=== PATIENT | female | born 1965 | race Caucasian/White ===

== ENCOUNTER 2018-01-31 09:09 | Emergency (ER) | payer OTHER ==
--- NOTE | 2018-01-31 10:31 | ED Physician Documentation ---
History of Present Illness - Stated complaint Stated Complaint: LIGHTHEAD/SYNCOPE - Chief complaint Chief Complaint: General - Additonal information Additional information: 52 f to ED with three days of profound fatigue weakness overall heaviness, int cp lasting few sec at a time soa and diarrhea no NV or abd pain no recent travel did have flu and took tamiflu approx 1 wk ago perimenopausal heavy bleeding (approx 1 wee change pad tampon q few hr) no bloody black BM has had severe anemia before Review of Systems Constitutional: reports: Fatigue. denies: Fever, Chills Ears: denies: Ear pain Throat: denies: Sore throat Cardiac: reports: Chest pain / pressure Respiratory: reports: Dyspnea. denies: Cough GI: reports: Diarrhea. denies: Abdominal Pain, Nausea, Vomiting, Bloody / black stool (only 2/2 iron) : reports: LMP (now). denies: Now EGA (permenopausal) Skin: denies: Rash Neurologic: reports: Generalized weakness Endocrine: denies: Easy bruising / bleeding Immunocompromised: denies: Immunocompromised PD PAST MEDICAL HISTORY - Past Medical History Past Medical History: Yes - Present Medications Home Medications: Ambulatory Orders Medication Instructions Recorded Confirmed No Known Home Medications [No 01/31/18 01/31/18 Known Home Medications] - Allergies Allergies/Adverse Reactions: Allergies Allergy/AdvReac Type Severity Reaction Status Date / Time prochlorperazine Allergy Unknown Verified 01/31/18 09:18 [From Compazine] - Social History Does the pt smoke?: No Smoking Status: Never smoker PD ED PE NORMAL - Vitals Vital signs reviewed: Yes - HEENT HEENT: Atraumatic - Neck Neck: Supple, no meningeal sign - Cardiac Cardiac: RRR - Respiratory Respiratory: No respiratory distress, Clear bilaterally - Abdomen Abdomen: Soft, Non tender - Derm Derm: Normal color - Extremities Extremities: No deformity, No edema, No calf tenderness / cord - Neuro Neuro: Alert and oriented X 3 Results - Vitals Vitals: Vital Signs - 24 hr 01/31/18 01/31/18 01/31/18 09:18 10:22 13:18 Temperature 36.6 C 36.5 C Heart Rate 111 H 97 79 Respiratory 18 12 16 Rate Blood Pressure 175/75 H 139/86 H 138/80 H O2 Saturation 100 97 100 Oxygen O2 Source Room air - EKG (time done) 5923 Rate: Rate (enter#) (104) Rhythm: Sinus tachycardia [place]: Normal Intervals: Normal [place] Ischemia: Normal ST segments - Labs Labs: Laboratory Tests 01/31/18 01/31/18 01/31/18 10:55 10:55 10:55 WBC 6.2 RBC 4.27 Hgb 13.7 Hct 40.2 MCV 94.2 MCH 32.2 H MCHC 34.2 RDW 12.7 Plt Count 265 MPV 6.4 L Neut # 4.7 Lymph # 1.1 L [place] # 0.3 Eos # 0.0 Baso # 0.1 Absolute Nucleated RBC 0.00 Nucleated RBC % 0.0 Sodium 139 Potassium 3.8 Chloride 99 L Carbon Dioxide 23 Anion Gap 17.0 H BUN 9 Creatinine 0.7 Estimated GFR (MDRD) 89 Glucose 102 H Calcium 9.4 Total Bilirubin 0.9 AST 326 H ALT 190 H Alkaline Phosphatase 90 Troponin I Total Protein 8.7 H Albumin 4.9 Globulin 3.8 Albumin/Globulin Ratio 1.3 Lipase 31 TSH Serum HCG, Qual NEGATIVE 01/31/18 01/31/18 10:55 10:55 WBC RBC Hgb Hct MCV MCH MCHC RDW Plt Count MPV Neut # Lymph # [place] # Eos # Baso # Absolute Nucleated RBC Nucleated RBC % Sodium Potassium Chloride Carbon Dioxide Anion Gap BUN Creatinine Estimated GFR (MDRD) Glucose Calcium Total Bilirubin AST ALT Alkaline Phosphatase Troponin I < 0.04 Total Protein Albumin Globulin Albumin/Globulin Ratio Lipase TSH 1.17 Serum HCG, Qual - Rads (name of study) CXR Radiology: See rad report (no acute process) PD MEDICAL DECISION MAKING - ED course ED course: labs fine except AST > ALT and pt advised to dec EtOH CXR neg not preg nl TSH considered PE but pt has just fleeting CP, her flu like sx are better now, she is has no risk factors (no personal hx, no fhx, non smoker, no surgery, no inpt stay, no long trips, no hormone tx etc) and no leg swelling tachypnea or hypoxia pt thinks her sx may be anxiety do not feel she needs a CTPA her HR is down she is reassured by her work up will dc advised pt I am not saying nothing is wrong, that a dx may later become apparent, that close fup is important etc Departure - Departure Disposition: 01 Home, Self Care Clinical Impression: Weakness Condition: Good Instructions: ED Weakness [facility] Comments: All your tests today came back very reassuring - except for the slightly elevated liver tests we talked about Your are not anemic You are not You are not diabetic Your thyroid function is fine. Your kidney function is fine Your electrolytes are fine. Your EKG is fine The blood test for a heart attack was fine Your xray was fine - no lung disease and no enlarged heart Based on your exam i do not think you have a blood clot in your lungs Your heart rate is down now and all your other vital signs are fine. Given the reassuring work up in the ER I think it is safe for you to go home now. I am not saying nothing is wrong and I encourage you to follow up with your PMD for a recheck and further work up. Return to the ER if worse Please cut down on your alcohol use Discharge Date/Time: 01/31/18 13:52
[2018-01-31 11:02] LABS: BASOPHILS # (AUTO) 0.1 10^3/uL (0.0-0.1); EOSINOPHILS % (AUTO) 0.1 %; HGB - HEMOGLOBIN 13.7 g/dL (12.0-16.0); LYMPHOCYTES # (AUTO) 1.1 10^3/uL (1.5-3.5); LYMPHOCYTES % (AUTO) 18.4 %; MEAN CORPUSCULAR HEMOGLOBIN 32.2 pg (27.0-31.0); MEAN CORPUSCULAR HGB CONC 34.2 g/dL (32.0-36.0); MEAN CORPUSCULAR VOLUME 94.2 fL (81.0-99.0); MEAN PLATELET VOLUME 6.4 fL (7.9-10.8); MONOCYTES # (AUTO) 0.3 10^3/uL (0.0-1.0); MONOCYTES % (AUTO) 4.3 %; NEUTROPHILS # (AUTO) 4.7 10^3/uL (1.5-6.6); NEUTROPHILS % (AUTO) 76.2 %; PLT - PLATELET COUNT 265 10^3/uL (130-450); RED BLOOD COUNT 4.27 10^6/uL (4.20-5.40); RED CELL DISTRIBUTION WIDTH 12.7 % (12.0-15.0); WHITE BLOOD COUNT 6.2 x10^3/uL (4.8-10.8)
[2018-01-31 11:15] LABS: ALBUMIN 4.9 g/dL (3.2-5.5); ALBUMIN/GLOBULIN RATIO 1.3 (1.0-2.2); BILIRUBIN,TOTAL 0.9 mg/dL (0.2-1.0); CALCIUM 9.4 mg/dL (8.5-10.3); CREATININE 0.7 mg/dL (0.4-1.0); TOTAL PROTEIN 8.7 g/dL (6.7-8.2)
[2018-01-31 11:36] LABS: HCG,QUALITATIVE BLOOD NEGATIVE
--- NOTE | 2018-01-31 12:32 | XRAY Report ---
EXAM: CHEST RADIOGRAPHY 2 VIEWS EXAM DATE: 01/31/2018. CLINICAL HISTORY: Dyspnea on exertion. Dizziness. Weakness. COMPARISON: 02/11/2014. TECHNIQUE: PA and lateral views. FINDINGS: Lungs/Pleura: Normal vasculature. The lungs are clear. No pleural fluid or pneumothorax. Mediastinum: Normal cardiac and mediastinal contours. Bones: Minimal degenerative changes of the spine. IMPRESSION: Normal examination. No change from 02/11/2014. [facility] Referring Provider Line: [phone] SITE ID: [id number]
[2018-01-31 13:19] VITALS: BP 138/80
== END 2018-01-31 13:52 | disposition home or self-care (01) ==
LOC: ED 09:09
DX: R53.1 Weakness (principal); R07.9 Chest pain, unspecified
CPT/HCPCS: 36415; 71046; 80053; 83690; 84443; 84484; 84703; 85025; 93005; 99283

== ENCOUNTER 2018-03-01 13:23 | Outpatient (CLI) | payer OTHER ==
[2018-03-01 19:09] LABS: FOLLICLE STIMULATING HORMONE 19.77 mIU/mL; LUTEINIZING HORMONE 7.97 mIU/mL
== END 2018-03-01 13:24 | disposition home or self-care (01) ==
LOC: LAB.F 13:23
PROVIDERS: ATTEND Obstetrics & Gynecology
DX: N95.1 Menopausal and female climacteric states (principal)
CPT/HCPCS: 36415; 82670; 83001; 83002

== ENCOUNTER 2018-04-22 13:31 | Emergency (ER) | payer OTHER ==
[2018-04-22 14:28] LABS: BASOPHILS % (AUTO) 0.8 %; HGB - HEMOGLOBIN 13.5 g/dL (12.0-16.0); LYMPHOCYTES # (AUTO) 0.9 10^3/uL (1.5-3.5); LYMPHOCYTES % (AUTO) 23.2 %; MEAN CORPUSCULAR HEMOGLOBIN 33.5 pg (27.0-31.0); MEAN CORPUSCULAR HGB CONC 34.2 g/dL (32.0-36.0); MEAN CORPUSCULAR VOLUME 97.8 fL (81.0-99.0); MEAN PLATELET VOLUME 6.9 fL (7.9-10.8); MONOCYTES # (AUTO) 0.3 10^3/uL (0.0-1.0); MONOCYTES % (AUTO) 6.9 %; NEUTROPHILS # (AUTO) 2.7 10^3/uL (1.5-6.6); NEUTROPHILS % (AUTO) 68.1 %; PLT - PLATELET COUNT 198 10^3/uL (130-450); RED BLOOD COUNT 4.04 10^6/uL (4.20-5.40); RED CELL DISTRIBUTION WIDTH 13.4 % (12.0-15.0); WHITE BLOOD COUNT 3.9 x10^3/uL (4.8-10.8)
[2018-04-22 14:39] LABS: ALBUMIN 4.6 g/dL (3.2-5.5); ALBUMIN/GLOBULIN RATIO 1.1 (1.0-2.2); BILIRUBIN,TOTAL 1.3 mg/dL (0.2-1.0); CALCIUM 10.3 mg/dL (8.5-10.3); CREATININE 0.6 mg/dL (0.4-1.0); TOTAL PROTEIN 8.6 g/dL (6.7-8.2)
[2018-04-22] MEDS ORDERED: SODIUM CHLORIDE 0.9% 1,000 ML IV ONE (14:51)
[2018-04-22] MEDS ORDERED: LORazepam 2 MG/ML VIAL IVP STA (14:51)
[2018-04-22] MEDS ORDERED: MORPHINE 2 MG/ML SYRINGE IVP STA (14:51)
--- NOTE | 2018-04-22 14:54 | ED Physician Documentation ---
PD HPI ABD PAIN - Stated complaint Stated Complaint: ABD/BACK PX - Chief complaint Chief Complaint: Cardiac - History obtained from History obtained from: Patient - History of Present Illness Timing - onset: Other (52-year-old woman who presents with her , she is a history of pretty heavy alcohol and use daily and drinks during the day. She has been having ongoing and increasing epigastric pain radiating to the back and right shoulder that has been severe especially over the last few days and especially today. It is not associated with eating. It is worse with lying flat. She has no appetite but has not been vomiting. She has had yellow E and soft sometimes dark but not black stools. She notices easy bruising as well.) Review of Systems Ten Systems: 10 systems reviewed and negative Constitutional: reports: Fatigue. 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: section - Present Medications Home Medications: Ambulatory Orders Medication Instructions Recorded Confirmed Lorazepam [Ativan] 1 mg PO TID PRN #20 tablet 04/22/18 Metoprolol Succinate [Toprol Xl] 04/22/18 Ondansetron HCl [Zofran] 4 mg PO Q6H PRN #10 tablet 04/22/18 busPIRone [Buspar] 04/22/18 oxyCODONE [Roxicodone] 5 mg PO Q4-6H PRN #20 tablet 04/22/18 - Allergies Allergies/Adverse Reactions: Allergies Allergy/AdvReac Type Severity Reaction Status Date / Time prochlorperazine Allergy Unknown Verified 04/22/18 13:59 [From Compazine] - Social History Does the pt smoke?: No Smoking Status: Never smoker Does the pt drink ETOH?: No Does the pt have substance abuse?: No - Family History Family history: reports: Non contributory PD ED PE NORMAL - Vitals Vital signs reviewed: Yes - General General: Alert and oriented X 3, No acute distress - HEENT HEENT: PERRL, EOMI - Neck Neck: Supple, no meningeal sign, No bony TTP - Cardiac Cardiac: RRR, No murmur - Respiratory Respiratory: No respiratory distress, Clear bilaterally - Abdomen Abdomen: Normal bowel sounds, Soft, Non tender - Back Back: No CVA TTP, No spinal TTP - Derm Derm: Normal color, Warm and dry - Extremities Extremities: No edema, No calf tenderness / cord - Neuro Neuro: Alert and oriented X 3, Normal speech - Psych Psych: Normal mood, Normal affect Results - Vitals Vitals: Vital Signs - 24 hr 04/22/18 04/22/18 13:57 15:45 Temperature 36.7 C Heart Rate 93 78 Respiratory 20 16 Rate Blood Pressure 170/110 H 144/91 H O2 Saturation 100 98 Oxygen O2 Source Room air - EKG (time done) 1427 Rate: Rate (enter#) (91) Rhythm: NSR [place]: Normal Intervals: Normal [place] QRS: Normal Ischemia: Normal ST segments Computer interpretation: Agree with computer - Labs Labs: Laboratory Tests 04/22/18 04/22/18 14:15 14:15 WBC 3.9 L RBC 4.04 L Hgb 13.5 Hct 39.5 MCV 97.8 MCH 33.5 H MCHC 34.2 RDW 13.4 Plt Count 198 MPV 6.9 L Neut # (Auto) 2.7 Lymph # (Auto) 0.9 L [place] # (Auto) 0.3 Eos # (Auto) 0.0 Baso # (Auto) 0.0 Absolute Nucleated RBC 0.00 Nucleated RBC % 0.0 Sodium 133 L Potassium 3.7 Chloride 96 L Carbon Dioxide 23 Anion Gap 14.0 H BUN 7 Creatinine 0.6 Estimated GFR (MDRD) 106 Glucose 124 H Calcium 10.3 Total Bilirubin 1.3 H AST 291 H ALT 192 H Alkaline Phosphatase 84 Total Protein 8.6 H Albumin 4.6 Globulin 4.0 Albumin/Globulin Ratio 1.1 Lipase 50 - Rads (name of study) RUQ sono Radiology: EMP read contemporaneously (No acute abnormalities, fatty liver and mild hepatomegaly.) PD MEDICAL DECISION MAKING - ED course ED course: 52-year-old woman presents with worsening right upper quadrant pain radiating to the shoulder and back which based on the history is likely biliary in origin , and more likely to be alcoholic hepatitis based on the origin. She does have modestly elevated liver enzymes although not too different from 2 months ago. She has no gallstones on ultrasound. Hepatitis panels are pending, but she has no risk factors for these. She has a MELD-Na score of 13 which is pretty low and does not need steroids. Both she and her plan to quit drinking completely she is given pain medication and benzodiazepines and nausea medicine and she will follow-up closely with her physician. - Sepsis Event Vital Signs: Vital Signs - 24 hr 04/22/18 04/22/18 13:57 15:45 Temperature 36.7 C Heart Rate 93 78 Respiratory 20 16 Rate Blood Pressure 170/110 H 144/91 H O2 Saturation 100 98 Oxygen O2 Source Room air Departure - Departure Disposition: 01 Home, Self Care Clinical Impression: Abdominal pain Qualifiers: Abdominal location: right upper quadrant Qualified Code(s): R10.11 - Right upper quadrant pain Alcoholic hepatitis Qualifiers: Ascites presence: without ascites Qualified Code(s): K70.10 - Alcoholic hepatitis without ascites Condition: Good Record reviewed to determine appropriate education?: Yes Instructions: ED Alcohol Abuse Follow-Up: Kelechi Carpenter MD [Primary Care Provider] - Within 3 Days Prescriptions: Lorazepam [Ativan] 1 mg PO TID PRN #20 tablet PRN Reason: Anxiety Ondansetron HCl [Zofran] 4 mg PO Q6H PRN #10 tablet PRN Reason: Nausea / Vomiting oxyCODONE [Roxicodone] 5 mg PO Q4-6H PRN #20 tablet PRN Reason: Pain Comments: Your blood pressure was elevated today on check into the emergency department. This does not mean that you have hypertension, it is a common phenomenon to come to the emergency department and have elevated blood pressure. I recommend that you see your primary care physician within the week to have it rechecked when you are feeling better.
[2018-04-22] MEDS ORDERED: HYDROmorphone 2 MG/ML VIAL IVP STA (15:45)
--- NOTE | 2018-04-22 15:59 | Ultrasound Report ---
Procedure Date: 04/22/2018 Accession Number: [id number] / [id number] Procedure: US - Abdomen Limited CPT Code: FULL RESULT: EXAM: ABDOMEN ULTRASOUND LIMITED, RUQ EXAM DATE: 04/22/2018 03:48 PM. CLINICAL HISTORY: Right upper quadrant pain. COMPARISON: None. TECHNIQUE: Real-time scanning was performed with static images obtained. FINDINGS: Liver: The liver is diffusely echogenic in appearance suggesting fibrofatty infiltration. No suspicious lesions or masses are identified. The liver is enlarged measuring 20.2 cm. Main portal vein flow: Hepatopetal. Gallbladder: Normal. No stones, wall thickening, or sonographic Lorenzo's sign. Biliary System: CBD measures 5 mm. No intrahepatic or extrahepatic ductal dilatation. Other: None. IMPRESSION: 1. No acute intra-abdominal abnormality demonstrated. 2. Fatty liver and mild hepatomegaly. [facility]
[2018-04-22 16:34] VITALS: BP 141/89
[2018-04-24 13:05] LABS: HEPATITIS A IGM NON-REACTIVE (NON-REACTIVE); HEPATITIS B CORE ANTIBODY IGM NON-REACTIVE (NON-REACTIVE); HEPATITIS B SURFACE ANTIGEN NON-REACTIVE (NON-REACTIVE); HEPATITIS C ANTIBODY NON-REACTIVE (NON-REACTIVE)
== END 2018-04-22 16:33 | disposition home or self-care (01) ==
LOC: ED 13:31
DX: K70.10 Alcoholic hepatitis without ascites (principal); R10.11 Right upper quadrant pain; M25.511 Pain in right shoulder; M54.9 Dorsalgia, unspecified; R03.0 Elevated blood-pressure reading, without diagnosis of hypertension
CPT/HCPCS: 36415; 76705; 80053; 80074; 83690; 85025; 93005; 96361; 96374; 96375; 99283; 99284; J1170; J2060; J2270; 81001; 81003; 81025; 87086

== ENCOUNTER 2018-11-20 03:26 | Emergency (ER) | payer OTHER ==
[2018-11-20] MEDS ORDERED: SODIUM CHLORIDE 0.9% 2,000 ML IV ONE (03:58)
[2018-11-20] MEDS ORDERED: diazePAM 5 MG TABLET PO STA ×3 (03:59→05:53)
[2018-11-20] MEDS ORDERED: GI COCKTAIL 120 ML BOTTLE PO SCH (04:00)
[2018-11-20] MEDS ORDERED: FAMOTIDINE 20 MG TABLET PO STA (04:09)
[2018-11-20] MEDS ORDERED: ONDANSETRON 4 MG/2 ML VIAL IVP STA (04:09)
[2018-11-20] MEDS ORDERED: IOVERSOL 320 100 ML VIAL IVP ONE ×2 (04:09→05:04)
[2018-11-20] MEDS ORDERED: MAG HYDROX/AL HYDROX/SIMETH 30 ML UDC PO STA (04:21)
[2018-11-20] MEDS ORDERED: LIDOCAINE VISCOUS 2% 15 ML UDC MM STA ×2 (04:21→05:54)
[2018-11-20 04:25] LABS: BASOPHILS % (AUTO) 0.5 %; EOSINOPHILS % (AUTO) 0.4 %; HGB - HEMOGLOBIN 13.3 g/dL (12.0-16.0); LYMPHOCYTES # (AUTO) 1.1 10^3/uL (1.5-3.5); LYMPHOCYTES % (AUTO) 21.7 %; MEAN CORPUSCULAR HEMOGLOBIN 31.9 pg (27.0-31.0); MEAN CORPUSCULAR HGB CONC 34.2 g/dL (32.0-36.0); MEAN CORPUSCULAR VOLUME 93.3 fL (81.0-99.0); MONOCYTES # (AUTO) 0.4 10^3/uL (0.0-1.0); MONOCYTES % (AUTO) 8.7 %; NEUTROPHILS # (AUTO) 3.4 10^3/uL (1.5-6.6); NEUTROPHILS % (AUTO) 68.7 %; PLT - PLATELET COUNT 218 10^3/uL (130-450); RED BLOOD COUNT 4.18 10^6/uL (4.20-5.40); RED CELL DISTRIBUTION WIDTH 14.2 % (12.0-15.0); WHITE BLOOD COUNT 4.9 x10^3/uL (4.8-10.8)
[2018-11-20 04:34] LABS: ALBUMIN/GLOBULIN RATIO 1.3 (1.0-2.2)
[2018-11-20 04:41] LABS: ALBUMIN 4.9 g/dL (3.2-5.5); BILIRUBIN,TOTAL 1.1 mg/dL (0.2-1.0); CALCIUM 10.1 mg/dL (8.5-10.3); CREATININE 0.6 mg/dL (0.4-1.0); TOTAL PROTEIN 8.6 g/dL (6.7-8.2)
--- NOTE | 2018-11-20 05:21 | XRAY Report ---
Reason: chest pain Procedure Date: 11/20/2018 Accession Number: [id number] / [id number] Procedure: XR - Chest 1 View X-Ray CPT Code: 65326 FULL RESULT: EXAM: CHEST RADIOGRAPHY EXAM DATE: 11/20/2018 05:12 AM. CLINICAL HISTORY: Chest pain. COMPARISON: 01/31/2018. TECHNIQUE: 1 view. FINDINGS: Lungs/Pleura: No alveolar consolidation or pleural effusion seen. No pneumothorax. Mediastinum: Within exam limitations, the cardiomediastinal contour is normal. Other: None. IMPRESSION: 1. No acute abnormality seen in the chest. [facility]
--- NOTE | 2018-11-20 05:52 | CT Report ---
Reason: Throat mass Procedure Date: 11/20/2018 Accession Number: [id number] / [id number] Procedure: CT - SOFT TISSUE NECK W CPT Code: FULL RESULT: EXAM: CT SOFT TISSUE NECK WITH CONTRAST. EXAM DATE: 11/20/2018 05:06 AM. HISTORY: Mass sensation in the throat. COMPARISONS: None. TECHNIQUE: Routine soft tissue neck CT protocol. Reconstructions: Coronal and sagittal. IV contrast: 80ML OPTIRAY 320. In accordance with CT protocol optimization, one or more of the following dose reduction techniques were utilized for this exam: automated exposure control, adjustment of mA and/or KV based on patient size, or use of iterative reconstructive technique. FINDINGS: Visualized Intracranial Contents: Unremarkable. Orbits: Symmetric and unremarkable. Sinuses: Visualized paranasal sinuses and mastoid air cells are clear. Oral cavity: The visualized oral cavity is unremarkable. The floor of the mouth is symmetric. Pharynx : Pharyngeal mucosa is unremarkable. The infratemporal fossa, parapharyngeal spaces, and retropharyngeal space are unremarkable. The base of the tongue is symmetric and unremarkable. The airway is patent. Larynx: Larynx and supraglottic airway are patent without mass lesion. Vocal cords are symmetric. The visualized trachea is unremarkable. Parotid and Submandibular Glands: Symmetric and unremarkable. Lymph Nodes: No enlarged lymph nodes are identified in the cervical, supraclavicular, and visualized superior mediastinal regions. Soft tissues: Soft tissues are unremarkable. No mass lesion or abnormal enhancement. Vascular Structures: Unremarkable. Thyroid Gland: Normal. Lung: The visualized lung apices are clear. Bones: No evidence of acute fracture or malalignment. There are mild degenerative changes in the cervical spine, most pronounced at C4-C5 and C5-C6. Other: None. IMPRESSION: No significant abnormality identified. No mass, significant lymphadenopathy, abscess or inflammatory appearing changes involving the neck soft tissues. [facility] The above call report findings were discussed with Umer Mcconnell by Dr. Jed Diaz at 05:49 AM on 11/20/2018.
[2018-11-20] MEDS ORDERED: SODIUM CHLORIDE 0.9% 1,000 ML IV ONE (05:53)
[2018-11-20] MEDS ORDERED: SUCRALFATE 1 GM/10 ML UDC PO STA (05:55)
--- NOTE | 2018-11-20 06:30 | ED Physician Documentation ---
History of Present Illness - Stated complaint Stated Complaint: THROAT SWELLING - Chief complaint Chief Complaint: General - History obtained from History obtained from: Patient - History of Present Illness Timing: Prior to arrival Pain level max: 3 Pain level now: 3 Severity Comments: moderate Quality: burning Radiates to: throat and epigastric Improved by: nothing Worsened by: ETOH - Additonal information Additional information: 52-year-old female who drinks 1 L of vodka daily presents with throat and epigastric discomfort.Patient's last drink was 8 hours ago. Review of Systems Constitutional: reports: Reviewed and negative Eyes: reports: Reviewed and negative Ears: reports: Reviewed and negative Nose: reports: Reviewed and negative Throat: reports: Reviewed and negative Cardiac: reports: Reviewed and negative Respiratory: reports: Reviewed and negative GI: reports: Abdominal Pain, Other (Sore throat) : reports: Reviewed and negative Skin: reports: Reviewed and negative Musculoskeletal: reports: Reviewed and negative Neurologic: reports: Reviewed and negative Psychiatric: reports: Reviewed and negative Endocrine: reports: Reviewed and negative Immunocompromised: reports: Reviewed and negative PD PAST MEDICAL HISTORY - Past Medical History Past Medical History: Yes Cardiovascular: Hypertension GI: GERD Psych: Depression, Anxiety, Other - Past Surgical History 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 - Present Medications Home Medications: Ambulatory Orders Medication Instructions Recorded Confirmed Metoprolol Succinate [Toprol Xl] 50 mg PO DAILY 04/22/18 11/20/18 Ondansetron HCl [Zofran] 4 mg PO Q6H PRN #10 tablet 04/22/18 11/20/18 oxyCODONE [Roxicodone] 5 mg PO Q4-6H PRN #20 tablet 04/22/18 11/20/18 Citalopram Hydrobromide 20 mg PO DAILY 11/20/18 11/20/18 [Citalopram HBr] Famotidine/Ca Carb/Mag Hydrox 1 each PO BID #60 tab.chew 11/20/18 [Pepcid Complete Tablet Chew] Gabapentin 300 mg PO TID #18 capsule 11/20/18 - Allergies Allergies/Adverse Reactions: Allergies Allergy/AdvReac Type Severity Reaction Status Date / Time prochlorperazine Allergy Unknown Verified 11/20/18 03:45 [From Compazine] - Social History Does the pt smoke?: No Smoking Status: Never smoker Does the pt drink ETOH?: Yes Does the pt have substance abuse?: Yes Substance Use and Type: Prescription Pills - Immunizations Immunizations are current?: Yes - POLST Patient has POLST: No PD ED PE NORMAL - Vitals Vital signs reviewed: Yes - General General: Alert and oriented X 3, No acute distress - HEENT HEENT: PERRL - Neck Neck: Supple, no meningeal sign - Cardiac Cardiac: RRR, No murmur - Respiratory Respiratory: Clear bilaterally - Abdomen Abdomen: Normal bowel sounds, Soft, Non tender, Non distended - Derm Derm: Warm and dry - Extremities Extremities: No deformity - Neuro Neuro: Alert and oriented X 3, Other (Patient tremulous with tongue fasciculations) - Psych Psych: Normal mood, Normal affect Results - Vitals Vitals: Vital Signs - 24 hr 11/20/18 11/20/18 11/20/18 03:30 03:45 05:13 Temperature 37.3 C Heart Rate 121 H 121 H 109 H Respiratory 22 19 15 Rate Blood Pressure 214/92 H 212/184 H 105/56 L O2 Saturation 100 100 96 11/20/18 05:51 Temperature Heart Rate 104 H Respiratory 14 Rate Blood Pressure 113/68 O2 Saturation 98 Oxygen O2 Source Room air - Labs Labs: Laboratory Tests 11/20/18 11/20/18 11/20/18 04:14 04:14 04:14 WBC 4.9 RBC 4.18 L Hgb 13.3 Hct 39.0 MCV 93.3 MCH 31.9 H MCHC 34.2 RDW 14.2 Plt Count 218 MPV 7.0 L Neut # (Auto) 3.4 Lymph # (Auto) 1.1 L [place] # (Auto) 0.4 Eos # (Auto) 0.0 Baso # (Auto) 0.0 Absolute Nucleated RBC 0.00 Nucleated RBC % 0.0 Sodium 134 L Potassium 3.7 Chloride 96 L Carbon Dioxide 22 Anion Gap 16.0 H BUN 6 Creatinine 0.6 Estimated GFR (MDRD) 106 Glucose 117 H Calcium 10.1 Total Bilirubin 1.1 H AST 120 H ALT 91 H Alkaline Phosphatase 77 Troponin I < 0.04 Total Protein 8.6 H Albumin 4.9 Globulin 3.7 Albumin/Globulin Ratio 1.3 Lipase 35 PD MEDICAL DECISION MAKING - ED course Complexity details: reviewed results, re-evaluated patient, considered differential, d/w patient, d/w family ED course: 52-year-old female alcoholic who drinks 1 L of vodka daily presents with throat and abdominal discomfort. Vitals notable for tachycardia and hypertension which improved with a total of 30 mg of Valium and 3 L IV fluids.Patient in early acute alcohol withdrawal. Throat and epigastric pain improved with symptomatic treatment. Patient was discharged on gabapentin taper and provided resources for addiction recovery. Brief intervention performed regarding alcohol cessation.Patient is in the contemplative stage. Departure - Departure Disposition: 01 Home, Self Care Clinical Impression: Epigastric pain Alcohol withdrawal Qualifiers: Complication of substance-induced condition: uncomplicated Qualified Code(s): F10.230 - Alcohol dependence with withdrawal, uncomplicated Condition: Stable Instructions: ED Withdrawal Alcohol, ED Epigastric Pain [facility] Follow-Up: Kelechi Carpenter MD [Primary Care Provider] - Prescriptions: Famotidine/Ca Carb/Mag Hydrox [Pepcid Complete Tablet Chew] 1 each PO BID #60 tab.chew Gabapentin 300 mg PO TID #18 capsule Comments: Follow-up on recovery resources. Follow-up with PCP within 24 hours. Return with worsening symptoms.
[2018-11-20 06:56] VITALS: BP 127/84
== END 2018-11-20 07:04 | disposition home or self-care (01) ==
LOC: ED 03:26
DX: F10.230 Alcohol dependence with withdrawal, uncomplicated (principal); R10.13 Epigastric pain; R07.0 Pain in throat; R00.0 Tachycardia, unspecified; I10 Essential (primary) hypertension
CPT/HCPCS: 36415; 70491; 71045; 80053; 83690; 84484; 85025; 93005; 96361; 96374; 99283; 99284; A9270; Q9967

== ENCOUNTER 2018-12-20 08:11 | Emergency (ER) | payer OTHER ==
[2018-12-20] MEDS ORDERED: PANTOPRAZOLE 40 MG VIAL IVP STA (08:59)
[2018-12-20] MEDS ORDERED: LORazepam 2 MG/ML VIAL IVP STA ×2 (08:59→11:58)
[2018-12-20] MEDS ORDERED: ONDANSETRON 4 MG/2 ML VIAL IVP STA (09:01)
--- NOTE | 2018-12-20 09:03 | ED Physician Documentation ---
History of Present Illness - Stated complaint Stated Complaint: ETOH WITHDRAWL - Chief complaint Chief Complaint: General - History obtained from History obtained from: Patient - History of Present Illness Timing: Enter time (129), Today - Additonal information Additional information: 53-year-old female alcoholic who has had a recent 3-week sobriety started drinking again 5 days ago and she stopped immediately and again experienced withdrawal symptoms. Last night she was having such a hard time sleeping that she drank 375 mL's of vodka and subsequently began to develop nausea vomiting abdominal pain. She states the pain is horrible her shakes are horrible and she is feeling quite ill. She was seen in the emergency department and treated for alcohol withdrawal with a gabapentin taper last month and she felt that that was helpful. Review of Systems Constitutional: denies: Fever Eyes: denies: Decreased vision Ears: denies: Ear pain Nose: denies: Rhinorrhea / runny nose, Congestion Throat: denies: Sore throat Cardiac: reports: Chest pain / pressure. 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 - Present Medications Home Medications: Ambulatory Orders Medication Instructions Recorded Confirmed Metoprolol Succinate [Toprol Xl] 50 mg PO DAILY 04/22/18 12/20/18 Famotidine/Ca Carb/Mag Hydrox 1 each PO BID #60 tab.chew 11/20/18 12/20/18 [Pepcid Complete Tablet Chew] Buspirone HCl 10 mg PO DAILY 12/20/18 12/20/18 Lorazepam [Ativan] 1 - 2 mg PO Q6HR PRN #30 tablet 12/20/18 Ondansetron Odt [Zofran] 4 mg TL Q6H PRN #10 tablet 12/20/18 Sucralfate [Carafate] 1 gm PO ACHS #60 tablet 12/20/18 - Allergies Allergies/Adverse Reactions: Allergies Allergy/AdvReac Type Severity Reaction Status Date / Time prochlorperazine Allergy Unknown Verified 12/20/18 08:22 [From Compazine] - Social History Does the pt smoke?: No Smoking Status: Never smoker Does the pt drink ETOH?: Yes Does the pt have substance abuse?: Yes Substance Use and Type: Marijuana - Immunizations Immunizations are current?: Yes - POLST Patient has POLST: No PD ED PE NORMAL - Vitals Vital signs reviewed: Yes (tachy and hypertensive ) - General General: Alert and oriented X 3, Well developed/nourished, Other (shaking and crying ) - HEENT HEENT: Atraumatic, PERRL, EOMI, Other (dry mucous membranes ) - Neck Neck: Supple, no meningeal sign, No bony TTP - Cardiac Cardiac: No murmur, Other (tachy to 120) - Respiratory Respiratory: No respiratory distress, Clear bilaterally - Abdomen Abdomen: Soft, Other (mild epigstric tendeness ) - Back Back: No CVA TTP, No spinal TTP - Derm Derm: Normal color, Warm and dry, No rash - Extremities Extremities: No deformity, No edema - Neuro Neuro: Alert and oriented X 3, patient access director 2-12 intact, No motor deficit, No sensory deficit, Normal speech Eye Opening: Spontaneous Motor: Obeys Commands Verbal: Oriented GCS Score: 15 - Psych Psych: Normal affect, Other (mood is helpless ) Results - Vitals Vitals: Vital Signs - 24 hr 12/20/18 12/20/18 12/20/18 08:18 09:30 12:16 Temperature 36.2 C L 36.1 C L Heart Rate 129 H 114 H 120 H Respiratory 14 24 18 Rate Blood Pressure 173/109 H 165/96 H 118/72 O2 Saturation 99 95 99 Oxygen O2 Source Room air - EKG (time done) 0921 Rate: Rate (enter#) (110) Rhythm: Sinus tachycardia, LAE Compare to prior EKG: Changed from prior EKG (SPT 11-20-18 rate has increased) Computer interpretation: Agree with computer - Labs Labs: Laboratory Tests 12/20/18 12/20/18 12/20/18 09:13 09:13 09:13 WBC 4.4 L RBC 4.45 Hgb 13.7 Hct 40.1 MCV 90.2 MCH 30.7 MCHC 34.1 RDW 13.9 Plt Count 219 MPV 7.0 L Neut # (Auto) 2.8 Lymph # (Auto) 1.1 L [place] # (Auto) 0.3 Eos # (Auto) 0.0 Baso # (Auto) 0.1 Absolute Nucleated RBC 0.00 Nucleated RBC % 0.0 PT 11.6 INR 1.0 Sodium 136 Potassium 3.6 Chloride 97 L Carbon Dioxide 22 Anion Gap 17.0 H BUN 8 Creatinine 0.8 Estimated GFR (MDRD) 76 L Glucose 124 H Calcium 9.9 Total Bilirubin 0.9 AST 70 H ALT 52 Alkaline Phosphatase 65 Troponin I Total Protein 8.3 H Albumin 4.7 Globulin 3.6 Albumin/Globulin Ratio 1.3 Lipase 42 Urine Color Urine Clarity Urine pH Ur Specific [place] Urine Protein Urine Glucose (UA) Urine Ketones Urine Occult Blood Urine Nitrite Urine Bilirubin Urine Urobilinogen Ur Leukocyte Esterase Urine RBC Urine WBC Ur Squamous Epith Cells Urine Bacteria Urine Casts Ur Microscopic Review Urine Culture Comments Ethyl Alcohol 34.2 12/20/18 12/20/18 09:13 10:53 WBC RBC Hgb Hct MCV MCH MCHC RDW Plt Count MPV Neut # (Auto) Lymph # (Auto) [place] # (Auto) Eos # (Auto) Baso # (Auto) Absolute Nucleated RBC Nucleated RBC % PT INR Sodium Potassium Chloride Carbon Dioxide Anion Gap BUN Creatinine Estimated GFR (MDRD) Glucose Calcium Total Bilirubin AST ALT Alkaline Phosphatase Troponin I < 0.04 Total Protein Albumin Globulin Albumin/Globulin Ratio Lipase Urine Color YELLOW Urine Clarity HAZY Urine pH 5.5 Ur Specific [place] 1.015 Urine Protein TRACE Urine Glucose (UA) NEGATIVE Urine Ketones NEGATIVE Urine Occult Blood SMALL H Urine Nitrite NEGATIVE Urine Bilirubin NEGATIVE Urine Urobilinogen 0.2 (NORMAL) Ur Leukocyte Esterase NEGATIVE Urine RBC 0-5 Urine WBC 0-3 Ur Squamous Epith Cells RARE Squamous Urine Bacteria Rare Urine Casts 3-5 Hyaline Casts Ur Microscopic Review INDICATED Urine Culture Comments NOT INDICATED Ethyl Alcohol PD MEDICAL DECISION MAKING - ED course Complexity details: reviewed old records, reviewed results, re-evaluated patient, considered differential, d/w patient, d/w family ED course: 53-year-old female with a history of alcohol abuse and trouble with alcohol withdrawal withdrew last month and did well for about 3 weeks. She claims that she drank 5 days ago and is still having withdrawal symptoms from this. This seems unlikely. She does appear to be in alcohol withdrawal and I suspect she has been drinking more than what she has admitted to. Last time she was then she required 30 mg of Valium to control her withdrawal symptoms. Here today she has an easier time of control of her symptoms with 2 mg of Ativan and this is repeated. She was given medication for acid control in her stomach and a banana bag. As well as antiemetic. We will place her on a course of Carafate and I have discussed with her the as needed use of Ativan for the withdrawal symptoms and she may need a fair amount of this over the next day. Departure - Departure Disposition: 01 Home, Self Care Clinical Impression: Alcohol withdrawal Qualifiers: Complication of substance-induced condition: with perceptual disturbance Qualified Code(s): F10.232 - Alcohol dependence with withdrawal with perceptual disturbance Condition: Stable Instructions: ED Withdrawal Alcohol Follow-Up: Kelechi Carpenter MD [Primary Care Provider] - Prescriptions: Lorazepam [Ativan] 1 - 2 mg PO Q6HR PRN #30 tablet PRN Reason: withdrawal symptoms Ondansetron Odt [Zofran] 4 mg TL Q6H PRN #10 tablet PRN Reason: Nausea / Vomiting Sucralfate [Carafate] 1 gm PO ACHS #60 tablet Discharge Date/Time: 12/20/18 12:22
[2018-12-20 09:24] LABS: BASOPHILS # (AUTO) 0.1 10^3/uL (0.0-0.1); BASOPHILS % (AUTO) 1.5 %; EOSINOPHILS % (AUTO) 0.6 %; HGB - HEMOGLOBIN 13.7 g/dL (12.0-16.0); LYMPHOCYTES # (AUTO) 1.1 10^3/uL (1.5-3.5); LYMPHOCYTES % (AUTO) 25.9 %; MEAN CORPUSCULAR HEMOGLOBIN 30.7 pg (27.0-31.0); MEAN CORPUSCULAR HGB CONC 34.1 g/dL (32.0-36.0); MEAN CORPUSCULAR VOLUME 90.2 fL (81.0-99.0); MONOCYTES # (AUTO) 0.3 10^3/uL (0.0-1.0); MONOCYTES % (AUTO) 7.3 %; NEUTROPHILS # (AUTO) 2.8 10^3/uL (1.5-6.6); NEUTROPHILS % (AUTO) 64.7 %; PLT - PLATELET COUNT 219 10^3/uL (130-450); RED BLOOD COUNT 4.45 10^6/uL (4.20-5.40); RED CELL DISTRIBUTION WIDTH 13.9 % (12.0-15.0); WHITE BLOOD COUNT 4.4 x10^3/uL (4.8-10.8)
[2018-12-20 09:32] LABS: PT - PROTHROMBIN TIME 11.6 secs (9.9-12.6)
[2018-12-20 09:39] LABS: ALBUMIN 4.7 g/dL (3.2-5.5); ALBUMIN/GLOBULIN RATIO 1.3 (1.0-2.2); BILIRUBIN,TOTAL 0.9 mg/dL (0.2-1.0); CALCIUM 9.9 mg/dL (8.5-10.3); CREATININE 0.8 mg/dL (0.4-1.0); TOTAL PROTEIN 8.3 g/dL (6.7-8.2)
[2018-12-20 11:03] LABS: BILIRUBIN,URINE NEGATIVE (NEGATIVE); GLUCOSE, URINE (UA) NEGATIVE (NEGATIVE); KETONES,URINE (UA) NEGATIVE (NEGATIVE); LEUKOCYTE ESTERASE, URINE NEGATIVE (NEGATIVE); NITRITE,URINE NEGATIVE (NEGATIVE); OCCULT BLOOD,URINE SMALL (NEGATIVE); PH,URINE 5.5 PH (5.0-7.5); PROTEIN,URINE TRACE mg/dL (NEGATIVE); UROBILINOGEN,URINE 0.2 (NORMAL) E.U./dL (NORMAL)
[2018-12-20 11:13] LABS: CLARITY,URINE HAZY (CLEAR)
[2018-12-20 11:32] LABS: BACTERIA,URINE Rare /HPF (None Seen); RBC,URINE 0-5 /HPF (0-5); SQUAMOUS EPITHELIAL CELL,UR RARE Squamous (<= Few)
[2018-12-20 11:33] LABS: CASTS, URINE 3-5 Hyaline Casts /LPF
[2018-12-20 12:17] VITALS: BP 118/72
== END 2018-12-20 12:22 | disposition home or self-care (01) ==
LOC: ED 08:11
DX: F10.232 Alcohol dependence with withdrawal with perceptual disturbance (principal); I10 Essential (primary) hypertension
CPT/HCPCS: 36415; 80053; 80320; 81001; 83690; 84484; 85025; 85610; 93005; 96374; 96375; 99283; 99284; J2060; 81003; 87086

== ENCOUNTER 2020-08-13 13:46 | Outpatient (CLI) | payer OTHER | END 2020-08-13 13:47 | disposition home or self-care (01) | LOC: COV 13:46 | PROVIDERS: ATTEND Family Medicine | DX: R05 Cough (principal); Z20.828 Contact with and (suspected) exposure to other viral communicable diseases; R09.81 Nasal congestion; J02.9 Acute pharyngitis, unspecified; M79.10 Myalgia, unspecified site; R53.83 Other fatigue; R19.7 Diarrhea, unspecified; R11.2 Nausea with vomiting, unspecified ==

== ENCOUNTER 2023-06-29 00:44 | Outpatient (CLI) | payer OTHER | END 2023-06-29 23:59 | disposition critical access hospital (66) | LOC: EMS 00:44 | DX: R45.851 Suicidal ideations (principal); F10.10 Alcohol abuse, uncomplicated | CPT/HCPCS: A0425; A0429 ==

== ENCOUNTER 2023-06-29 01:16 | Emergency (ER) | payer OTHER ==
[2023-06-29 01:30] LABS: BASOPHILS # (AUTO) 0.1 10^3/uL (0.0-0.1); BASOPHILS % (AUTO) 1.1 %; EOSINOPHILS % (AUTO) 0.4 %; HCT - HEMATOCRIT 41.2 % (37.0-47.0); HGB - HEMOGLOBIN 13.6 g/dL (12.0-16.0); LYMPHOCYTES # (AUTO) 1.9 10^3/uL (1.5-3.5); MEAN CORPUSCULAR HEMOGLOBIN 31.9 pg (27.0-31.0); MEAN CORPUSCULAR VOLUME 96.5 fL (81.0-99.0); MEAN PLATELET VOLUME 8.7 fL (7.9-10.8); MONOCYTES # (AUTO) 0.3 10^3/uL (0.0-1.0); MONOCYTES % (AUTO) 5.7 %; NEUTROPHILS # (AUTO) 2.4 10^3/uL (1.5-6.6); NEUTROPHILS % (AUTO) 51.6 %; PLT - PLATELET COUNT 219 10^3/uL (130-450); RED BLOOD COUNT 4.27 10^6/uL (4.20-5.40); RED CELL DISTRIBUTION WIDTH 13.1 % (12.0-15.0); WHITE BLOOD COUNT 4.6 x10^3/uL (4.8-10.8)
[2023-06-29] MEDS ORDERED: LORazepam 2 MG/ML VIAL IVP STA ×2 (01:30→01:58)
[2023-06-29] MEDS ORDERED: SODIUM CHLORIDE 0.9% 1,000 ML IV STA (01:30)
[2023-06-29 01:39] LABS: ALBUMIN 4.8 g/dL (3.2-5.5)
[2023-06-29 01:40] LABS: ALBUMIN/GLOBULIN RATIO 1.6 (1.0-2.2); BILIRUBIN,TOTAL 0.5 mg/dL (0.2-1.0); CALCIUM 9.4 mg/dL (8.5-10.3); CREATININE 0.6 mg/dL (0.6-1.3); POTASSIUM 3.8 mmol/L (3.5-4.5); TOTAL PROTEIN 7.8 g/dL (6.4-8.9)
[2023-06-29 02:44] LABS: BILIRUBIN,URINE NEGATIVE (NEGATIVE); GLUCOSE, URINE (UA) NEGATIVE (NEGATIVE); KETONES,URINE (UA) 15 mg/dL (NEGATIVE); LEUKOCYTE ESTERASE, URINE NEGATIVE (NEGATIVE); NITRITE,URINE NEGATIVE (NEGATIVE); OCCULT BLOOD,URINE SMALL (NEGATIVE); PROTEIN,URINE NEGATIVE (NEGATIVE); UROBILINOGEN,URINE 0.2 (NORMAL) E.U./dL (NORMAL)
[2023-06-29 02:52] LABS: CLARITY,URINE CLEAR (CLEAR)
--- NOTE | 2023-06-29 02:53 | ED Physician Documentation ---
History of Present Illness - Stated complaint Stated Complaint: HBD - Chief complaint Chief Complaint: General - History obtained from History obtained from: Patient, EMS - Additonal information Additional information: BIBA. HPI from patient. Patient tells me "I am struggling"; asked to elaborate, she indicates that she is having problems with alcoholism and, at this time, withdrawal symptoms. Jacqui ent says she has been drinking more or less on a daily basis for the past 2 months, drinks wine and liquor. Her last drink was approximately 11 AM (yesterday). She complains of anxiety, generalized tremulousness, nausea and vomiting. Patient indicates that she had inpatient treatment for alcoholism approximately 4 years ago and was sober up until a couple of months ago. She denies any illicit drug use. Patient is seeking help for her withdrawal symptoms as well as inquiring about options for inpatient treatment for detox. Review of Systems Cardiac: reports: Reviewed and negative Respiratory: reports: Reviewed and negative GI: reports: Nausea, Vomiting. denies: Abdominal Pain Psychiatric: reports: Anxiety, Insomnia. 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 - Present Medications Home Medications: Ambulatory Orders Medication Instructions Recorded Confirmed Metoprolol Succinate [Toprol Xl] 50 mg PO DAILY 04/22/18 12/20/18 Famotidine/Ca Carb/Mag Hydrox 1 each PO BID #60 tab.chew 11/20/18 12/20/18 [Pepcid Complete Tablet Chew] Buspirone HCl 10 mg PO DAILY 12/20/18 12/20/18 Lorazepam [Ativan] 1 - 2 mg PO Q6HR PRN #30 tablet 12/20/18 Ondansetron Odt [Zofran] 4 mg TL Q6H PRN #10 tablet 12/20/18 Sucralfate [Carafate] 1 gm PO ACHS #60 tablet 12/20/18 - Allergies Allergies/Adverse Reactions: Allergies Allergy/AdvReac Type Severity Reaction Status Date / Time prochlorperazine Allergy Unknown Verified 06/29/23 01:18 [From Compazine] - Social History Does the pt smoke?: No Smoking Status: Never smoker Does the pt drink ETOH?: Yes Does the pt have substance abuse?: Yes - Immunizations Immunizations are current?: Yes - POLST Patient has POLST: No PD ED PE NORMAL - Vitals Vital signs reviewed: Yes - General General: Alert and oriented X 3, Well developed/nourished, Other (appears anxious, mild generalized tremulousness) - HEENT HEENT: Atraumatic, Moist mucous membranes - Neck Neck: Supple, no meningeal sign - Cardiac Cardiac: RRR, No murmur - Respiratory Respiratory: No respiratory distress, Clear bilaterally - Abdomen Abdomen: Soft, Non tender, Non distended - Derm Derm: Normal color, Warm and dry - Neuro Neuro: Alert and oriented X 3 Eye Opening: Spontaneous Motor: Obeys Commands Verbal: Oriented GCS Score: 15 Results - Vitals Vitals: Vital Signs - 24 hr 06/29/23 06/29/23 06/29/23 01:18 01:25 02:21 Temperature 36.8 C Heart Rate 98 93 Respiratory 20 18 20 Rate Blood Pressure 134/78 H 114/59 L O2 Saturation 95 100 97 06/29/23 06/29/23 05:53 07:39 Temperature 37 C Heart Rate 91 90 Respiratory 20 18 Rate Blood Pressure 93/60 114/59 L O2 Saturation 100 90 L Oxygen O2 Source Room air - Labs Labs: Laboratory Tests 06/29/23 06/29/23 06/29/23 01:22 01:22 01:22 WBC 4.6 L RBC 4.27 Hgb 13.6 Hct 41.2 MCV 96.5 MCH 31.9 H MCHC 33.0 RDW 13.1 Plt Count 219 MPV 8.7 Neut # (Auto) 2.4 Lymph # (Auto) 1.9 [place] # (Auto) 0.3 Eos # (Auto) 0.0 Baso # (Auto) 0.1 Absolute Nucleated RBC 0.00 Nucleated RBC % 0.0 Sodium 140 Potassium 3.8 Chloride 100 L Carbon Dioxide 23 Anion Gap 17.0 H BUN 8 Creatinine 0.6 Estimated GFR (MDRD) 104 Glucose 95 Calcium 9.4 Total Bilirubin 0.5 AST 172 H ALT 104 H Alkaline Phosphatase 73 Total Protein 7.8 Albumin 4.8 Globulin 3.0 Albumin/Globulin Ratio 1.6 Lipase 111 H Urine Color Urine Clarity Urine pH Ur Specific [place] Urine Protein Urine Glucose (UA) Urine Ketones Urine Occult Blood Urine Nitrite Urine Bilirubin Urine Urobilinogen Ur Leukocyte Esterase Urine RBC Urine WBC Ur Squamous Epith Cells Urine Bacteria Ur Microscopic Review Urine Culture Comments Ethyl Alcohol 357.4 06/29/23 02:25 WBC RBC Hgb Hct MCV MCH MCHC RDW Plt Count MPV Neut # (Auto) Lymph # (Auto) [place] # (Auto) Eos # (Auto) Baso # (Auto) Absolute Nucleated RBC Nucleated RBC % Sodium Potassium Chloride Carbon Dioxide Anion Gap BUN Creatinine Estimated GFR (MDRD) Glucose Calcium Total Bilirubin AST ALT Alkaline Phosphatase Total Protein Albumin Globulin Albumin/Globulin Ratio Lipase Urine Color YELLOW Urine Clarity CLEAR Urine pH 6.0 Ur Specific [place] <=1.005 Urine Protein NEGATIVE Urine Glucose (UA) NEGATIVE Urine Ketones 15 H Urine Occult Blood SMALL H Urine Nitrite NEGATIVE Urine Bilirubin NEGATIVE Urine Urobilinogen 0.2 (NORMAL) Ur Leukocyte Esterase NEGATIVE Urine RBC 0-5 Urine WBC 0-3 Ur Squamous Epith Cells RARE Squamous Urine Bacteria Rare Ur Microscopic Review INDICATED Urine Culture Comments NOT INDICATED Ethyl Alcohol PD Medical Decision Making - ED course Complexity details: reviewed results, re-evaluated patient, considered differential, d/w patient ED course: Patient presents with signs and symptoms consistent with alcohol withdrawal, and reports that she has been drinking on a daily basis for approximately 2 months now. CBC is unremarkable except for a mild leukopenia (WBC 4.6; similarly low white blood cell count is noted on previous result in [facility]). Normal bilirubin, but liver enzymes are elevated (AST 172, ALT 104). Lipase is mildly elevated (111). Her serum ethanol level is markedly elevated (0.357). She is given 1 L normal saline IV as well as 1 mg IV lorazepam with a repeat dose of the lorazepam. She is also given 40 mg IV Protonix for suspected alcoholic gastritis, as well as 4 mg IV ondansetron. These interventions resulted in good symptom control. At the end of my shift patient is still in ED with plan for patient to contact [facility] to see if she can be admitted to their facility for detox. consult is requested to assist in this process. Care of patient is turned over to oncoming ED physician (Dr. Fonseca) at end of my shift Departure - Departure Forms: PCP List
[2023-06-29 02:56] LABS: BACTERIA,URINE Rare /HPF (None Seen); RBC,URINE 0-5 /HPF (0-5); SQUAMOUS EPITHELIAL CELL,UR RARE Squamous (<= Few); WBC,URINE 0-3 /HPF (0-5)
[2023-06-29] MEDS ORDERED: ONDANSETRON 4 MG/2 ML VIAL IVP STA (05:13)
[2023-06-29] MEDS ORDERED: PANTOPRAZOLE 40 MG VIAL IVP STA (05:13)
[2023-06-29] MEDS ORDERED: LORazepam 1 MG TABLET PO STA (10:29)
--- NOTE | 2023-06-29 11:22 | ED Physician Documentation ---
ED Addendum - Addendum Addendum: Patient care turned over to me at shift change. She is awaiting sobriety and seeing if she wants placement at [facility] for alcohol detox. [facility] does have a bed available. Spouse is at the bedside. Patient has been seen by social work. At this time the patient does not want to go to an inpatient facility and wants to try to quit on her own. She is requesting medications To help her with alcohol withdrawal. She Is speaking clearly at this time, ambulating steadily and appears appropriate for discharge. She is not suicidal. No cause to hold this patient against her will. Departure - Departure Disposition: Home, Self Care Clinical Impression: Alcohol intoxication, Abnormal liver enzymes Condition: Stable Instructions: ED Alcohol Intoxication Follow-Up: LUAN JOHNSON MD [Physician No Access] - Prescriptions: LORazepam [Ativan] 1 mg PO Q6HR PRN #15 tablet PRN Reason: Alcohol Withdrawal Ondansetron Odt [Zofran] 4 mg TL Q6H PRN #10 tablet PRN Reason: Nausea / Vomiting Comments: Judi, you were found to have an elevated alcohol level of 0.35. Your labs also show mild elevation in your ALT and AST which are markers of your liver. These labs have been elevated for you in the past and could be related to your alcohol use. I would recommend follow-up with your primary care provider regarding these abnormal labs. I would strongly encourage you to consider stopping and decreasing your alcohol intake. Our social media editor has given you information for inpatient detox facilities. At this time you are wanting to try to stop drinking on your own. I have sent a prescription for Ativan to help with your withdrawal symptoms to [facility] in [place]. This is a sedating medication and that you should not take this medication if you are using alcohol at all. [facility] [address] [place] [address] Main The [facility] offers a monitored and safe setting for individuals withdrawing from alcohol and drugs, and counseling for individuals experiencing a mental health crisis. All services are provided in a 10-bed facility where intensive medical monitoring is required along with stabilization services. The goal of these services is to assess a clients mental health and substance use disorder related needs, and assist them in accessing the services they need to recover. Forms: PCP List
[2023-06-29 11:36] VITALS: BP 135/54; O2SAT 100
== END 2023-06-29 11:35 | disposition home or self-care (01) ==
LOC: EDUNIT# → ED 01:16
DX: F10.129 Alcohol abuse with intoxication, unspecified (principal); Y90.8 Blood alcohol level of 240 mg/100 ml or more
CPT/HCPCS: 36415; 80053; 80320; 81001; 83690; 85025; 96374; 96375; 96376; 99283; 99284; J2060; J8499; 81003; 87086

== ENCOUNTER 2023-08-28 11:37 | Outpatient (CLI) | payer OTHER | END 2023-08-28 11:38 | disposition critical access hospital (66) | LOC: EMS 11:37 | DX: F10.20 Alcohol dependence, uncomplicated (principal) | CPT/HCPCS: A0425; A0429 ==

== ENCOUNTER 2023-08-28 12:14 | Emergency (ER) | payer OTHER ==
--- NOTE | 2023-08-28 12:36 | ED Physician Documentation ---
History of Present Illness - Stated complaint Stated Complaint: ETOH - Chief complaint Chief Complaint: General - History obtained from History obtained from: Patient, EMS - History of Present Illness Pain level max: 0 Pain level now: 0 - Additonal information Additional information: Patient is a 57-year-old female with a longstanding history of alcoholism presents to the emergency department via EMS requesting rehab/detox. She states that she has been drinking for the past several days and wants help quitting. She is not suicidal or homicidal. She states her only other medication is amlodipine. No fevers. No chills. She states her last drink was "several hours ago". She denies ever having seizures while going through withdrawals. No history of hallucinations. Nothing makes it better or worse. No abdominal pain. No chest pain. 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 - Present Medications Home Medications: Ambulatory Orders Medication Instructions Recorded Confirmed Metoprolol Succinate [Toprol Xl] 50 mg PO DAILY 04/22/18 12/20/18 Famotidine/Ca Carb/Mag Hydrox 1 each PO BID #60 tab.chew 11/20/18 12/20/18 [Pepcid Complete Tablet Chew] Buspirone HCl 10 mg PO DAILY 12/20/18 12/20/18 Lorazepam [Ativan] 1 - 2 mg PO Q6HR PRN #30 tablet 12/20/18 Ondansetron Odt [Zofran] 4 mg TL Q6H PRN #10 tablet 12/20/18 Sucralfate [Carafate] 1 gm PO ACHS #60 tablet 12/20/18 LORazepam [Ativan] 1 mg PO Q6HR PRN #15 tablet 06/29/23 Ondansetron Odt [Zofran] 4 mg TL Q6H PRN #10 tablet 06/29/23 chlordiazePOXIDE [Librium] 25 - 50 mg PO Q6H PRN #15 cap 08/28/23 - Allergies Allergies/Adverse Reactions: Allergies Allergy/AdvReac Type Severity Reaction Status Date / Time prochlorperazine Allergy Unknown Verified 06/29/23 01:18 [From Compazine] - Social History Does the pt smoke?: No Smoking Status: Never smoker Does the pt drink ETOH?: Yes Does the pt have substance abuse?: Yes - Immunizations Immunizations are current?: Yes - POLST Patient has POLST: No PD ED PE NORMAL - Vitals Vital signs reviewed: Yes - General General: Alert and oriented X 3, Other (intoxicated, tearful) - HEENT HEENT: PERRL, Moist mucous membranes - Neck Neck: Supple, no meningeal sign - Cardiac Cardiac: RRR, Strong equal pulses - Respiratory Respiratory: No respiratory distress, Clear bilaterally - Abdomen Abdomen: Soft, Non tender, Non distended - Derm Derm: Warm and dry - Extremities Extremities: No edema, No calf tenderness / cord - Neuro Neuro: Alert and oriented X 3 - Psych Psych: Normal mood, Normal affect Results - Vitals Vitals: Vital Signs - 24 hr 08/28/23 08/28/23 12:15 17:54 Temperature 36.5 C 37 C Heart Rate 120 H 111 H Respiratory 18 16 Rate Blood Pressure 145/85 H 133/75 H O2 Saturation 93 100 Oxygen O2 Source Room air - Labs Labs: Laboratory Tests 08/28/23 08/28/23 08/28/23 12:42 12:42 14:20 WBC 4.5 L RBC 4.57 Hgb 14.1 Hct 43.9 MCV 96.1 MCH 30.9 MCHC 32.1 RDW 13.1 Plt Count 298 MPV 8.3 Neut # (Auto) 2.6 Lymph # (Auto) 1.6 [place] # (Auto) 0.2 Eos # (Auto) 0.0 Baso # (Auto) 0.1 Absolute Nucleated RBC 0.00 Nucleated RBC % 0.0 Sodium 142 Potassium 3.9 Chloride 102 Carbon Dioxide 25 Anion Gap 15.0 H BUN 9 Creatinine 0.6 Estimated GFR (MDRD) 104 Glucose 133 H Calcium 9.5 Magnesium 2.1 Total Bilirubin 0.3 AST 27 ALT 37 Alkaline Phosphatase 57 Total Protein 7.5 Albumin 4.9 Globulin 2.6 Albumin/Globulin Ratio 1.9 Lipase 45 TSH 0.70 Urine Color LT. YELLOW Urine Clarity CLEAR Urine pH 6.0 Ur Specific [place] <=1.005 Urine Protein NEGATIVE Urine Glucose (UA) NEGATIVE Urine Ketones NEGATIVE Urine Occult Blood SMALL H Urine Nitrite NEGATIVE Urine Bilirubin NEGATIVE Urine Urobilinogen 0.2 (NORMAL) Ur Leukocyte Esterase NEGATIVE Urine RBC 0-5 Urine WBC 0-3 Ur Squamous Epith Cells RARE Squamous Urine Bacteria Rare Urine Casts 0-2 Granular Casts Ur Microscopic Review INDICATED Urine Culture Comments NOT INDICATED Urine HCG, Qual NEGATIVE Salicylates < 1.5 Urine Opiates Screen NEGATIVE Ur Oxycodone Screen NEGATIVE Urine Methadone Screen NEGATIVE Ur Propoxyphene Screen NEGATIVE Acetaminophen 0.1 Ur Barbiturates Screen NEGATIVE Ur Tricyclics Screen NEGATIVE Ur Phencyclidine Scrn NEGATIVE Ur Amphetamine Screen NEGATIVE U Methamphetamines Scrn NEGATIVE U Benzodiazepines Scrn NEGATIVE Urine Cocaine Screen NEGATIVE U Cannabinoids Screen NEGATIVE Ethyl Alcohol 401.7 PD Medical Decision Making - ED course Complexity details: considered differential, d/w patient ED course: Patient was allowed to sober in the emergency department. She is ambulating w ith a steady gait. No longer has any slurred speech. She has decided she does not want to go to detox. Her neighbor is going to come and pick her up. She does request medications to help with detox at home. Patient is not suicidal or homicidal. She agrees not to drink at home. Encouraged her to return should she change her mind. Patient counseled regarding signs and symptoms for which I believe and urgent re-evaluation would be necessary. Patient with good understanding of and agreement to plan and is comfortable going home at this time This document was made in part using voice recognition software. While efforts are made to proofread this document, sound alike and grammatical errors may occur. Departure - Departure Disposition: 01 Home, Self Care Clinical Impression: Alcohol intoxication Qualifiers: Complication of substance-induced condition: uncomplicated Qualified Code(s): F10.920 - Alcohol use, unspecified with intoxication, uncomplicated Condition: Good Instructions: ED Alcohol Intoxication Follow-Up: your,doctor in 3 days [Other] Prescriptions: chlordiazePOXIDE [Librium] 25 - 50 mg PO Q6H PRN #15 cap PRN Reason: Alcohol Withdrawal Comments: Please follow-up with your doctor in 3 to 5 days. Please return if you worsen. Your prescription was sent to [facility] in [place]. Contact: [facility] [address] [place] [phone] Fax: Forms: PCP List Discharge Date/Time: 08/28/23 18:30
[2023-08-28 12:48] LABS: BASOPHILS # (AUTO) 0.1 10^3/uL (0.0-0.1); BASOPHILS % (AUTO) 1.1 %; EOSINOPHILS % (AUTO) 0.2 %; HCT - HEMATOCRIT 43.9 % (37.0-47.0); HGB - HEMOGLOBIN 14.1 g/dL (12.0-16.0); LYMPHOCYTES # (AUTO) 1.6 10^3/uL (1.5-3.5); LYMPHOCYTES % (AUTO) 35.9 %; MEAN CORPUSCULAR HEMOGLOBIN 30.9 pg (27.0-31.0); MEAN CORPUSCULAR HGB CONC 32.1 g/dL (32.0-36.0); MEAN CORPUSCULAR VOLUME 96.1 fL (81.0-99.0); MEAN PLATELET VOLUME 8.3 fL (7.9-10.8); MONOCYTES # (AUTO) 0.2 10^3/uL (0.0-1.0); NEUTROPHILS # (AUTO) 2.6 10^3/uL (1.5-6.6); NEUTROPHILS % (AUTO) 58.4 %; PLT - PLATELET COUNT 298 10^3/uL (130-450); RED BLOOD COUNT 4.57 10^6/uL (4.20-5.40); RED CELL DISTRIBUTION WIDTH 13.1 % (12.0-15.0); WHITE BLOOD COUNT 4.5 x10^3/uL (4.8-10.8)
[2023-08-28 13:11] LABS: ACETAMINOPHEN 0.1 ug/mL; ALBUMIN 4.9 g/dL (3.2-5.5); ALBUMIN/GLOBULIN RATIO 1.9 (1.0-2.2); ALKALINE PHOSPHATASE 57 IU/L (42-121); ALT ALANINE AMINOTRANSFERASE 37 IU/L (10-60); AST ASPARTATE AMINOTRANSFERASE 27 IU/L (10-42); BILIRUBIN,TOTAL 0.3 mg/dL (0.2-1.0); BUN - BLOOD UREA NITROGEN 9 mg/dL (6-20); CALCIUM 9.5 mg/dL (8.5-10.3); CARBON DIOXIDE - CO2 25 mmol/L (21-32); CHLORIDE 102 mmol/L (101-111); CREATININE 0.6 mg/dL (0.6-1.3); ETOH - ETHANOL 401.7 mg/dL; GFR - MDRD 104 (>89); GLUCOSE 133 mg/dL (74-104); LIPASE 45 U/L (11-82); MAGNESIUM 2.1 mg/dL (1.7-2.3); POTASSIUM 3.9 mmol/L (3.5-4.5); SODIUM 142 mmol/L (135-145); TOTAL PROTEIN 7.5 g/dL (6.4-8.9)
[2023-08-28 13:19] LABS: SALICYLATE < 1.5 mg/dL
[2023-08-28] MEDS ORDERED: IBUPROFEN 600 MG TABLET PO STA (13:27)
[2023-08-28] MEDS ORDERED: ONDANSETRON ODT 4 MG TABLET TL STA (14:03)
[2023-08-28 14:28] LABS: MUDS CUTOFF CONCENTRATIONS CUTOFF CONC BELOW:
[2023-08-28 14:33] LABS: BILIRUBIN,URINE NEGATIVE (NEGATIVE); GLUCOSE, URINE (UA) NEGATIVE (NEGATIVE); KETONES,URINE (UA) NEGATIVE (NEGATIVE); LEUKOCYTE ESTERASE, URINE NEGATIVE (NEGATIVE); NITRITE,URINE NEGATIVE (NEGATIVE); OCCULT BLOOD,URINE SMALL (NEGATIVE); PROTEIN,URINE NEGATIVE (NEGATIVE); UROBILINOGEN,URINE 0.2 (NORMAL) E.U./dL (NORMAL)
[2023-08-28 14:36] LABS: CLARITY,URINE CLEAR (CLEAR); HCG UR QUAL NEGATIVE
[2023-08-28 14:42] LABS: AMPHETAMINE SCREEN,URINE NEGATIVE (NEGATIVE); BARBITURATE SCREEN,UR NEGATIVE (NEGATIVE); BENZODIAZEPINES SCREEN, URINE NEGATIVE (NEGATIVE); COCAINE SCREEN URINE NEGATIVE (NEGATIVE); METHADONE SCREEN, URINE NEGATIVE (NEGATIVE); METHAMPHETAMINES SCREEN, URINE NEGATIVE (NEGATIVE); OPIATE SCREEN, URINE NEGATIVE (NEGATIVE); OXYCODONE SCREEN, URINE NEGATIVE (NEGATIVE); PROPOXYPHENE SCREEN, URINE NEGATIVE (NEGATIVE); THC CANNABINOID SCREEN, URINE NEGATIVE (NEGATIVE); TRICYCLIC ANTIDEPRESSANT,URINE NEGATIVE (NEGATIVE)
[2023-08-28 14:50] LABS: BACTERIA,URINE Rare /HPF (None Seen); RBC,URINE 0-5 /HPF (0-5); SQUAMOUS EPITHELIAL CELL,UR RARE Squamous (<= Few); WBC,URINE 0-3 /HPF (0-5)
[2023-08-28 14:51] LABS: CASTS, URINE 0-2 Granular Casts /LPF
[2023-08-28] MEDS ORDERED: OLANZapine ODT 5 MG TABLET TL STA ×2 (15:01→15:39)
[2023-08-28 18:01] VITALS: BP 133/75; O2SAT 100
== END 2023-08-28 18:30 | disposition home or self-care (01) ==
LOC: EDUNIT# → ED 12:14
DX: F10.920 Alcohol use, unspecified with intoxication, uncomplicated (principal); I10 Essential (primary) hypertension; Y90.8 Blood alcohol level of 240 mg/100 ml or more
CPT/HCPCS: 36415; 80053; 80306; 80307; 80320; 80329; 81001; 81025; 83690; 83735; 84443; 85025; 99283; A9270; Q0162; 81003; 84484; 87086